=== PATIENT | female | born 1975 | race Caucasian/White ===

== ENCOUNTER 2017-10-01 22:40 | Emergency (ER) | payer MEDICAID ==
[~2017-10-01] VITALS: Ht 157.5 cm; Wt 69.5 kg
[~2017-10-01 22:40] MED LIST: FERR240T9 PO; HYDR-3498 PO; IBUP-1542 PO; LORA-441 PO; MAG-19 PO; NITR-58 PO; OMEP20CA16 PO; ONDA4TAB35 PO; PREN-39 PO
[2017-10-01 22:46] VITALS: Ht 157.5 cm; Wt 69.5 kg
--- NOTE | 2017-10-02 00:11 | ERD ---
ER Documentation Chief Complaint Chief Complaint bib self, cc: headache x 2 days hx of migraine HPI 41-year-old female who presents emergency department for left-sided headache for 2 days. Stated that she has history of migraines and this is similar to her migraine attacks. Stated that her headache started gradually with unknown specific date and time of onset. Reports light sensitivity. LMP: 09/10/2017. A0. Denies that this is the worst headache of her life, head injury, loss of consciousness, changes in vision, throat pain, neck pain, neck stiffness, difficulty swallowing, shoulder pain, chest pain, back pain, abdominal pain, nausea, vomiting, confusion, diarrhea, loss of bowel and bladder control, change in bowel bladder habits, urinary symptoms, or possibility of being , trauma, injury, falls, numbness or tingling sensation, difficulty walking, unilateral deficit, recent long travel, recent travel, recent exposure to any illness, recent antibiotic use in the last 3 months, fever, chills. No known drug allergies. Past medical history of migraine. Surgery: Denies. Not taking any prescription medication at home. Social: Not working at this time. Denies smoking, use of alcoholic beverages, use of illegal drugs. ROS All systems reviewed and are negative except as per history of present illness. Medications Home Meds Active Scripts Diphenhydramine Hcl* (Benadryl*) 25 Mg Cap, 25 MG PO Q8 Y for ITCHING/RASH, #30 TAB Prov:YISEL FERRER F 10/02/17 Ondansetron Hcl* (Zofran*) 4 Mg Tablet, 4 MG PO Q8H Y for NAUSEA AND/OR VOMITING , #30 TAB Prov:ROSITAILAYISEL BALDERRAMA F 10/02/17 Acetamin/Butalbital/Caffeine* (Fioricet*) [id number] Tab, 1 TAB PO Q6H Y for PAIN, #20 TAB Prov:ROSITAILAYISEL BALDERRAMA F 10/02/17 Allergies Allergies: Coded Allergies: No Known Allergy (Unverified , 10/01/17) PMhx/Soc History of Surgery: No Anesthesia Reaction: No Hx Neurological Disorder: No Hx Respiratory Disorders: No Hx Cardiac Disorders: No Hx Psychiatric Problems: No Hx Miscellaneous Medical Probl: No Hx Alcohol Use: No Hx Substance Use: No Hx Tobacco Use: No Physical Exam Vitals Vital Signs Date Time Temp Pulse Resp B/P Pulse Ox O2 Delivery O2 Flow Rate FiO2 10/01/17 22:46 98.6 72 18 136/81 100 Physical Exam Const: [] Head: Atraumatic Eyes: Normal Conjunctiva. PERRLA. No pain in eye movement. Extraocular movement of her eyes within normal limits. ENT: Normal External Ears, Nose and Mouth. Throat: Uvula is midline not displaced. Tonsils are +1 bilaterally without redness without exudates. Tolerating secretions. Patent airway. Speaks full and clear sentences. Neck: Full range of motion..~ No meningismus. No neck stiffness. No nuchal rigidity. Negative and Kernig sign. Negative on Brudzinski sign. No signs of meningeal irritation. Resp: Clear to auscultation bilaterally Cardio: Regular rate and rhythm, no murmurs Abd: Soft, non tender, non distended. Normal bowel sounds. There is no right upper/right lower/epigastric/left upper/left lower abdominal tenderness and likely palpation. Negative [place] sign. Negative on Rovsing sign. Negative on psoas sign. Able to jump 10 times without developing abdominal pain. No signs of peritoneal irritation. No CVA tenderness. Skin: No petechiae or rashes Back: No midline or flank tenderness Ext: No cyanosis, or edema Neur: Awake and alert. Romberg test negative. No neurological deficits. Psych: Normal Mood and Affect Results 24 hrs Current Medications Medications (Trade) Dose Ordered Sig/Bravo Route PRN Reason Start Time Stop Time Status Last Admin Dose Admin Metoclopramide HCl (Reglan) 10 mg ONCE ONCE IV 10/02/17 00:30 10/02/17 00:31 DC 10/02/17 00:40 Diphenhydramine HCl 25 mg 25 mg ONCE ONCE IV 10/02/17 00:30 10/02/17 00:31 DC 10/02/17 00:40 Sodium Chloride (NS) 500 ml @ 500 mls/hr Q1H ONCE IV 10/02/17 00:30 10/02/17 01:29 DC 10/02/17 00:41 Procedures/MDM 41-year-old female who presents emergency department for left-sided headache for 2 days. Stated that she has history of migraines and this is similar to her migraine attacks. Stated that her headache started gradually with unknown specific date and time of onset. Reports light sensitivity. LMP: 09/10/2017. A0. Denies that this is the worst headache of her life, head injury, loss of consciousness, changes in vision, throat pain, neck pain, neck stiffness, difficulty swallowing, shoulder pain, chest pain, back pain, abdominal pain, nausea, vomiting, confusion, diarrhea, loss of bowel and bladder control, change in bowel bladder habits, urinary symptoms, or possibility of being , trauma, injury, falls, numbness or tingling sensation, difficulty walking, unilateral deficit, recent long travel, recent travel, recent exposure to any illness, recent antibiotic use in the last 3 months, fever, chills. No known drug allergies. Past medical history of migraine. Surgery: Denies. Not taking any prescription medication at home. Social: Not working at this time. Denies smoking, use of alcoholic beverages, use of illegal drugs. Physical exam: No neurological deficits. Disease process was explained to the patient. She verbalized understanding and agreed with the treatment, plan of care. POC urine : Negative. Treatment: IV insertion. Normal saline 500 cc bolus. Benadryl IV. Reglan IV. Reevaluation: Denies headache, dizziness, blurred vision, neck pain, throat pain , difficulty swallowing, shoulder pain, chest pain, back pain, abdominal pain. Normal bowel sounds. There is no right upper/right lower/epigastric/left upper/ left lower abdominal tenderness and likely palpation. Negative [place] sign. Negative on Rovsing sign. Negative on psoas sign. Able to jump 10 times without developing abdominal pain. No signs of peritoneal irritation. No CVA tenderness. Romberg test is negative. Cranial nerves II through XII are intact. No neurological deficits. Ambulatory with steady gait and without difficulty. Stated that she feels much better at this time and is ready to go home. Differential diagnosis: Subarachnoid hemorrhage versus stroke versus migraine versus cluster headache versus temporal arteritis versus tension headache versus sinus headache Final diagnosis: Migraine. Prescription: Fioricet. Zofran. Benadryl. Follow-up with PCP in the next 24-48 hours. PCP to refer patient to neurologist in the next 48-72 hours. Come back to emergency department for any new symptoms or any worsening symptoms. All questions and concerns are answered. Patient verbalized understanding and agreed with the plan of care. Hemodynamically stable on discharge. Departure Diagnosis: Primary Impression: Headache Additional Impression: Migraine Condition: Stable Additional Instructions: Follow-up with PCP in the next 24-48 hours. PCP to refer patient to neurologist in the next 48-72 hours. Come back to emergency department for any new symptoms or any worsening symptoms. All questions and concerns are answered. Patient verbalized understanding and agreed with the plan of care. YISEL FERRER Oct 02, 2017 00:10
[2017-10-02] MEDS ORDERED: METOCLOPRAMIDE 10 MG INJ IV ONE (00:30)
[2017-10-02] MEDS ORDERED: SOD CHLORIDE 0.9% 500 ML IV ONE (00:30)
[2017-10-02] MEDS ORDERED: DIPHENHYDRAMINE 50 MG INJ IV ONE (00:30)
[2017-10-02] MEDS ORDERED: FIORICET PO ×2 (01:28→01:32)
[2017-10-02] MEDS ORDERED: ONDA4TAB8 PO (01:33)
[2017-10-02] MEDS ORDERED: BEN25 PO (01:33)
== END 2017-10-02 01:45 | disposition home or self-care (01) ==
LOC: FTE 22:40 → MERGE 22:40 → FTE 10-02 01:45
DX: G43.909 Migraine, unspecified, not intractable, without status migrainosus (principal)
CPT/HCPCS: 96374; 96375; J1200; J2765; J7040; Z7502

== ENCOUNTER 2018-01-22 18:38 | Emergency (ER) | END 2018-01-23 00:04 | disposition left against medical advice (07) ==

== ENCOUNTER 2018-01-26 05:03 | Emergency (ER) | END 2018-01-26 08:05 | disposition home or self-care (01) ==